=== PATIENT | female | born 1990 | race Caucasian/White ===

== ENCOUNTER 2017-12-11 03:47 | Emergency (ER) | payer OTHER ==
--- NOTE | 2017-12-11 03:50 | EDPHY ---
H & P Stated Complaint: SOB, out of inhaler Time Seen by Provider: 12/11/17 03:50 HPI/ROS: HPI CHIEF COMPLAINT: Asthma attack, wheezing HISTORY OF PRESENT ILLNESS: Patient very pleasant 27-year-old female she is otherwise healthy, history of asthma, never been intubated nor hospitalize, she has an albuterol inhaler she states for the past 24 hr she has been sick with wheezing and coughing. Nonproductive cough. Denies any recent illness or fever. She when out of her inhaler last night decided come the emergency room if she has had increasing working a breathing and shortness of breath and wheezing. Denies any chest pain or vomiting. Past Medical History: Asthma Past Surgical History: No Recent surgery Social History: Denies drugs alcohol tobacco products. Family History: Noncontributory ROS REVIEW OF SYSTEMS: A comprehensive 10 point review of systems is otherwise negative aside from elements mentioned in the history of present illness. Exam Constitutional appears well nontoxic triage nursing summary reviewed, vital signs reviewed, awake/alert. Vital signs noted to be abnormal at triage with tachycardia increased labored breathing. Eyes normal conjunctivae and sclera, EOMI, PERRLA. HENT normal inspection, atraumatic, moist mucus membranes, no epistaxis, neck supple/ no meningismus, no raccoon eyes. Respiratory increased respiratory rate, mild labored breathing, wheezing throughout all lung gonzalez, dry bronchitic cough Cardiovascular rate normal, regular rhythm, no murmur, no edema, distal pulses normal. Gastrointestinal soft, non-tender, no rebound, no guarding, normal bowel sounds, no distension, no pulsatile mass. Genitourinary no CVA tenderness. Musculoskeletal no midline vertebral tenderness, full range of motion, no calf swelling, no tenderness of extremities, no meningismus, good pulses, neurovascularly intact. Skin pink, warm, & dry, no rash, skin atraumatic. Neurologic awake, alert and oriented x 3, AAOx3, moves all 4 extremities equally, motor intact, sensory intact, CN II-XII intact, normal cerebellar, normal vision, normal speech. Psychiatric normal mood/affect. Heme/Lymph/Immune no lymphadenopathy. Differential Diagnosis: Includes but is not limited to in a particular order acute asthma attack, reactive airway disease, pneumonia, viral pneumonia, bronchitis Medical Decision Making: Plan for this patient DuoNeb breathing treatment, prednisone 60 mg p.o.. Re-evaluate. Re-evaluation: Chest x-ray one view: Negative for acute cardiopulmonary disease. 0442: Patient re-evaluated this time she is receiving a 2nd breathing treatment the DuoNeb did improve her airway disease. She had less wheezing and better breathing on exam. She states she felt much better after DuoNeb breathing treatment however on re-examination she still had some faint wheezing. She is currently getting an albuterol nebulizer at this time. She received 60 mg of prednisone here in the emergency room. Additionally I reviewed her chest x-ray that shows no evidence of pneumonia pneumothorax. 0511: Re-examination at this time patient resting comfortably no acute distress feeling much better. Good air movement. No tachypnea no hypoxia. Lungs are clear on reexamination. Patient requesting discharge. Return precautions discussed. Source: Patient - Personal History LMP (Females 10-55): 8-14 Days Ago Current Tetanus Diphtheria and Acellular Pertussis (TDAP): Yes - Medical/Surgical History Hx Asthma: Yes Hx Chronic Respiratory Disease: No Hx Diabetes: No Hx Cardiac Disease: No Hx Renal Disease: No Hx Cirrhosis: No Hx Alcoholism: No Hx HIV/AIDS: No Hx Splenectomy or Spleen Trauma: No Other PMH: asthma - Social History Smoking Status: Never smoked Constitutional: Initial Vital Signs Temperature (C) 36.7 C 12/11/17 03:49 Heart Rate 115 H 12/11/17 03:49 Respiratory Rate 25 H 12/11/17 03:49 Blood Pressure 145/97 H 12/11/17 03:49 O2 Sat (%) 98 12/11/17 03:49 O2 Delivery Mode Room Air Allergies/Adverse Reactions: shellfish derived Allergy (Verified 12/11/17 03:48) tree nut [Nuts] Allergy (Verified 12/11/17 03:48) Home Medications: Medication Instructions Recorded Albuterol 12/11/17 Albuterol [Proventil Inhaler HFA 1 - 2 puffs IH Q4H #1 mdi 12/11/17 (*)] predniSONE 60 mg PO DAILY #15 tab 12/11/17 Medical Decision Making - Data Points Medications Given: Discontinued Medications Albuterol (Proventil Neb) 3 ml IH EDNOW ONE Stop: 12/11/17 04:27 Last Admin: 12/11/17 04:28 Dose: 3 ml Albuterol/Ipratropium (Duoneb) 3 ml IH EDNOW ONE Stop: 12/11/17 03:54 Last Admin: 12/11/17 03:55 Dose: 3 ml Prednisone (Prednisone) 60 mg PO EDNOW ONE Stop: 12/11/17 03:54 Last Admin: 12/11/17 03:55 Dose: 60 mg Departure - Departure Disposition: Home, Routine, Self-Care Clinical Impression: Asthma Qualifiers: Asthma severity: mild Asthma persistence: intermittent Asthma complication type : with acute exacerbation Qualified Code(s): J45.21 - Mild intermittent asthma with (acute) exacerbation Condition: Good Instructions: Asthma (ED) Additional Instructions: 1. Return emergency room immediately if you have worsening or trouble breathing. 2. Prednisone for the next 5 days. 3. Albuterol inhaler 2 puffs every 4 hr as needed for shortness of breath and wheezing but return if worse. Referrals: Patient,NotPresent [Unknown] - As per Instructions Prescriptions: Albuterol [Proventil Inhaler HFA (*)] 1 - 2 puffs IH Q4H #1 mdi predniSONE 60 mg PO DAILY #15 tab
[2017-12-11] MEDS ORDERED: IPRATROPIUM/ALBUTEROL 3 ML DEYVIAL ONE (03:52)
[2017-12-11] MEDS ORDERED: IPRATROPIUM/ALBUTEROL 3 ML DEYVIAL IH ONE (03:53)
[2017-12-11] MEDS ORDERED: predniSONE 20 MG TAB PO ONE (03:53)
[2017-12-11] MEDS ORDERED: predniSONE 20 MG TAB ONE (03:54)
[2017-12-11] MEDS ORDERED: ALBUTEROL 3 ML DEYVIAL IH ONE (04:26)
[2017-12-11] MEDS ORDERED: ALBUTEROL 3 ML DEYVIAL ONE (04:26)
[2017-12-11 05:35] VITALS: BP 113/64
== END 2017-12-11 05:00 | disposition home or self-care (01) ==
DX: J45.21 Mild intermittent asthma with (acute) exacerbation (principal)
CPT/HCPCS: J7512; J7613